=== PATIENT | female | born 1940 | race Caucasian/White ===

== ENCOUNTER 2017-04-11 11:48 | Emergency (ER) | payer OTHER ==
[~2017-04-11] VITALS: Ht 165.1 cm; Wt 72.6 kg
[~2017-04-11 11:48] MED LIST: BUPROPION300 M1 PO; COZAAR100 MG PO; CRESTOR20 M1 PO; DETROL LA4 MG PO; DULERA1 AR2; LEVOTHYROXINE0.1 M2 PO; MAGNESIUM250 M1 PO; METOPROLOL SUCC25 M1 PO; NEXIUM40 MG PO; PHOSLO667 MG PO; PLA75 PO; PROLIA60 MG/ML SC; TUDORZA PR400 MCG/A1 IH; VITAMIN D2000 I3 PO
[2017-04-11 11:55] VITALS: BP 154/90; Ht 165.1 cm; Wt 72.6 kg
== END 2017-04-11 16:20 | disposition left against medical advice (07) ==
LOC: ED 11:48
DX: Z53.21 Procedure and treatment not carried out due to patient leaving prior to being seen by health care provider (principal)

== ENCOUNTER 2018-07-14 09:19 | Emergency (ER) | payer OTHER ==
[~2018-07-14] VITALS: Ht 170.2 cm; Wt 71.2 kg
[2018-07-14 09:31] VITALS: Ht 170.2 cm; Wt 71.2 kg
[2018-07-14 12:15] VITALS: BP 127/57
== END 2018-07-14 12:13 | disposition home or self-care (01) ==
LOC: ED 09:19
DX: M54.42 Lumbago with sciatica, left side (principal); I10 Essential (primary) hypertension; Z90.710 Acquired absence of both cervix and uterus; Z90.89 Acquired absence of other organs; Z88.0 Allergy status to penicillin; Z88.6 Allergy status to analgesic agent; Z88.1 Allergy status to other antibiotic agents
CPT/HCPCS: J1885

== ENCOUNTER 2018-08-27 08:10 | Emergency (ER) | payer OTHER ==
[~2018-08-27] VITALS: Ht 167.6 cm; Wt 70.8 kg
[2018-08-27 08:29] VITALS: Ht 167.6 cm; Wt 70.8 kg
[2018-08-27 12:09] VITALS: BP 142/78
== END 2018-08-27 12:09 | disposition home or self-care (01) ==
LOC: ED 08:10
DX: S32.592A Other specified fracture of left pubis, initial encounter for closed fracture (principal); I10 Essential (primary) hypertension; I25.2 Old myocardial infarction; Z90.89 Acquired absence of other organs; Z98.890 Other specified postprocedural states; Z88.0 Allergy status to penicillin; Z88.6 Allergy status to analgesic agent; Z88.1 Allergy status to other antibiotic agents; X58.XXXA Exposure to other specified factors, initial encounter; Y93.89 Activity, other specified; Y92.89 Other specified places as the place of occurrence of the external cause; Y99.8 Other external cause status
CPT/HCPCS: J1885